=== PATIENT | female | born 1995 | race Caucasian/White ===

== ENCOUNTER 2017-12-27 15:30 | Inpatient (IN) | payer OTHER ==
[~2017-12-27] VITALS: Ht 160 cm; Wt 71.7 kg
[2017-12-27] MEDS ORDERED: PRENATAL TABLE1 EAC1 PO (16:22)
[2017-12-27] MEDS ORDERED: FOLIC ACID0.4 MG PO (16:23)
[2017-12-29] MEDS ORDERED: IBUPROFEN400 MG PO (12:59)
== END 2017-12-29 16:50 | DRG 775 ==
LOC: LDR 15:30 → OB/GYN 20:26
PROC: 10E0XZZ Delivery of Products of Conception, External Approach (ICD-10-PCS; principal; 2017-12-27)
PROC: 4A1HXCZ Monitoring of Products of Conception, Cardiac Rate, External Approach (ICD-10-PCS; 2017-12-27)
DX: O99.820 Streptococcus B carrier state complicating pregnancy (principal); Z3A.39 39 weeks gestation of pregnancy; Z37.0 Single live birth

== ENCOUNTER 2020-01-10 18:30 | Emergency (ER) | payer OTHER ==
[~2020-01-10] VITALS: Ht 162.6 cm; Wt 68.0 kg
[~2020-01-10 18:30] MED LIST: FOLIC ACID0.4 MG PO; IBUPROFEN400 MG PO; PRENATAL TABLE1 EAC1 PO
[2020-01-10] MEDS ORDERED: DUI500 PO (19:26)
== END 2020-01-10 20:13 | disposition home or self-care (01) ==
LOC: ER 18:30
DX: J03.90 Acute tonsillitis, unspecified (principal)

== ENCOUNTER 2020-04-04 05:16 | Inpatient (IN) | payer OTHER ==
[~2020-04-04] VITALS: Ht 162.6 cm; Wt 73.5 kg
[~2020-04-04 05:16] MED LIST changes: +DUI500 PO
== END 2020-04-06 11:20 | disposition home or self-care (01) | DRG 807 ==
LOC: LDR 05:16 → OB/GYN 18:24
PROVIDERS: ADMIT Obstetrics & Gynecology; ATTEND Obstetrics & Gynecology
PROC: 10E0XZZ Delivery of Products of Conception, External Approach (ICD-10-PCS; principal; 2020-04-04)
PROC: 4A1HXCZ Monitoring of Products of Conception, Cardiac Rate, External Approach (ICD-10-PCS; 2020-04-04)
DX: O80 Encounter for full-term uncomplicated delivery (principal); Z37.0 Single live birth; Z3A.39 39 weeks gestation of pregnancy